=== PATIENT | female | born 2000 | race Caucasian/White ===

== ENCOUNTER 2020-11-07 17:11 | Emergency (ER) | payer BC ==
[~2020-11-07] VITALS: Wt 52.2 kg
[~2020-11-07 17:11] MED LIST: MOTRIN CHI100 MG/5 M PO
== END 2020-11-07 20:13 | disposition home or self-care (01) ==
LOC: ED 17:11
DX: R91.1 Solitary pulmonary nodule (principal); Z98.890 Other specified postprocedural states; Z79.899 Other long term (current) drug therapy

== ENCOUNTER → 2021-05-27 | Outpatient (CLI) | payer OTHER | END | disposition home or self-care (01) | LOC: COVID19 15:40 | PROVIDERS: ATTEND Internal Medicine | DX: Z20.822 Contact with and (suspected) exposure to COVID-19 (principal) ==